=== PATIENT | female | born 1965 | race Caucasian/White ===

== ENCOUNTER 2018-08-19 06:54 | Day surgery (SDC) | payer BC ==
[2018-08-19] MEDS ORDERED: FENTAnyl 50 MCG/ML VIAL (08:53)
[2018-08-19] MEDS ORDERED: MIDAZOLAM 1 MG/ML 2 ML INJ ×2 (08:53)
== END 2018-08-19 12:12 | disposition home or self-care (01) ==
LOC: GIL 06:54
DX: K21.9 Gastro-esophageal reflux disease without esophagitis (principal); K64.8 Other hemorrhoids; D50.9 Iron deficiency anemia, unspecified
CPT/HCPCS: 43239; 84703; 88305; 88312